=== PATIENT | male | born 1990 | race Caucasian/White ===

== ENCOUNTER 2019-08-29 08:18 | Emergency (ER) | payer SELFPAY ==
[~2019-08-29] VITALS: Ht 182.9 cm; Wt 68.0 kg
[2019-08-29 08:29] VITALS: Ht 182.9 cm; Wt 68.0 kg
[2019-08-29 09:26] VITALS: BP 139/93
== END 2019-08-29 08:53 | disposition left against medical advice (07) ==
LOC: ED 08:18
DX: R56.9 Unspecified convulsions (principal); F14.10 Cocaine abuse, uncomplicated; Z88.0 Allergy status to penicillin

== ENCOUNTER 2019-10-03 17:27 | Emergency (ER) | payer SELFPAY ==
[~2019-10-03] VITALS: Ht 180.3 cm; Wt 71.2 kg
[2019-10-03 18:08] VITALS: Ht 180.3 cm; Wt 71.2 kg
[2019-10-03 19:08] VITALS: BP 136/69
== END 2019-10-03 19:08 | disposition home or self-care (01) ==
LOC: ED 17:27
DX: S22.32XA Fracture of one rib, left side, initial encounter for closed fracture (principal); S00.83XA Contusion of other part of head, initial encounter; R68.84 Jaw pain; M41.9 Scoliosis, unspecified; Z88.0 Allergy status to penicillin; Z88.1 Allergy status to other antibiotic agents; W22.8XXA Striking against or struck by other objects, initial encounter; Y93.89 Activity, other specified; Y92.89 Other specified places as the place of occurrence of the external cause; Y99.8 Other external cause status
CPT/HCPCS: 72072; J1885